=== PATIENT | female | born 1990 | race Two or more races ===

== ENCOUNTER 2020-09-27 14:46 | Emergency (ER) | payer MEDICAID ==
[~2020-09-27] VITALS: Ht 165.1 cm; Wt 113.6 kg
[2020-09-27] MEDS ORDERED: FERR-89 PO (14:59)
[2020-09-27] MEDS ORDERED: AMLO-257 PO (14:59)
[2020-09-27] MEDS ORDERED: ASCO500 PO (14:59)
[2020-09-27] MEDS ORDERED: CYAN250010 PO (14:59)
[2020-09-27] MEDS ORDERED: POLY17PO47 PO (14:59)
[2020-09-27] MEDS ORDERED: DOCU-275 PO (14:59)
[2020-09-27] MEDS ORDERED: IBUPROFEN 800 MG TABLET PO ONE (16:00)
[2020-09-27 17:24] VITALS: BP 144/76
== END 2020-09-27 17:28 | disposition home or self-care (01) ==
LOC: EMS 14:53
DX: S93.402A Sprain of unspecified ligament of left ankle, initial encounter (principal); X50.9XXA Other and unspecified overexertion or strenuous movements or postures, initial encounter; Y93.89 Activity, other specified; Y92.89 Other specified places as the place of occurrence of the external cause; Y99.8 Other external cause status